=== PATIENT | female | born 1945 | race Caucasian/White ===

== ENCOUNTER 2016-10-11 14:05 | Observation (INO) | payer OTHER ==
[~2016-10-11] VITALS: Ht 157.5 cm; Wt 52.6 kg
[~2016-10-11 14:05] MED LIST: MECL25CH PO; ZOFR4TAB3 SL
[2016-10-11 14:10] VITALS: BP 148/78; PULSE 76; RESP 18; TEMP 98.4; O2SAT 99
--- NOTE | 2016-10-11 14:38 | PD ---
HPI Chief Complaint: Dizziness Time Seen by Provider: 14:14 Travel History International Travel<30 days: No Contact w/Intl Traveler<30days: No Traveled to known affect area: No History of Present Illness HPI To 71 year-old woman presents to the emergency department complaining of squeezing pressure-like discomfort in her chest ongoing for the past 3-4 days. Symptoms been intermittent. Worse with emotional upset. Not predictably worse with exertion, however is relieved by rest. Symptoms are associated with nausea and dizziness. States he gets short of breath when she gets upset sometimes with nothing definitely associated with a squeezing pressure. She had the symptoms when she came into the emergency department but they've been relieved after laying here in the bed. She otherwise has been feeling generally well and healthy. No history of previous heart disease. She states she gets similar symptoms fleetingly in the past, but nothing it daily and nothing this severe. Only medical history is hyperlipidemia, borderline diabetes. History Past Medical History Narrative Medical Hyperlipidemia Borderline diabetes Influenza Vaccination: Yes Social History Alcohol Use: No Tobacco Use: No Allergies-Medications (Allergen,Severity, Reaction): Coded Allergies: No Known Allergies (Unverified , 10/11/16) Reported Meds & Prescriptions Reported Meds & Active Scripts Active No Active Prescriptions or Reported Medications Review of Systems Except as stated in HPI: all other systems reviewed are Neg Physical Exam Narrative GENERAL: Well-appearing 71 year-old woman, no acute distress. SKIN: Warm and dry. NECK: Trachea midline. No JVD. CARDIOVASCULAR: Regular rate and rhythm. Faint systolic murmur. RESPIRATORY: No accessory muscle use. Clear to auscultation. Breath sounds equal bilaterally. GASTROINTESTINAL: Abdomen soft, non-tender, nondistended. Hepatic and splenic margins not palpable. MUSCULOSKELETAL: No obvious deformities. No clubbing. No cyanosis. No edema. NEUROLOGICAL: Awake and alert. No obvious cranial nerve deficits. Motor grossly within normal limits. Normal speech. PSYCHIATRIC: Appropriate mood and affect; insight and judgment normal. Data Data Last Documented VS Vital Signs Date Time Temp Pulse Resp B/P Pulse Ox O2 Delivery O2 Flow Rate FiO2 10/11/16 14:45 99 Nasal Cannula 2 10/11/16 14:45 16 10/11/16 14:10 98.4 76 148/78 Orders Electrocardiogram (10/11/16 14:33) Complete Blood Count With Diff (10/11/16 14:33) Comprehensive Metabolic Panel (10/11/16 14:33) Magnesium (Mg) (10/11/16 14:33) Troponin I (10/11/16 14:33) Lipase (10/11/16 14:33) Ecg Monitoring (10/11/16 14:33) Iv Access Insert/Monitor (10/11/16 14:33) Oximetry (10/11/16 14:33) Oxygen Administration (10/11/16 14:33) Aspirin Chew (Aspirin Chew) (10/11/16 14:45) Sodium Chloride 0.9% Flush (Ns Flush) (10/11/16 14:45) Sodium Chlorid 0.9% 500 Ml Inj (Ns 500 M (10/11/16 14:45) Chest, Pa & Lat (10/11/16 14:33) Labs Laboratory Tests Test 10/11/16 14:35 White Blood Count 9.3 TH/MM3 Red Blood Count 4.09 MIL/MM3 Hemoglobin 12.3 GM/DL Hematocrit 36.5 % Mean Corpuscular Volume 89.4 FL Mean Corpuscular Hemoglobin 30.2 PG Mean Corpuscular Hemoglobin 33.8 % Concent Red Cell Distribution Width 12.5 % Platelet Count 340 TH/MM3 Mean Platelet Volume 7.7 FL Neutrophils (%) (Auto) 43.2 % Lymphocytes (%) (Auto) 31.6 % Monocytes (%) (Auto) 5.1 % Eosinophils (%) (Auto) 19.1 % Basophils (%) (Auto) 1.0 % Neutrophils # (Auto) 4.0 TH/MM3 Lymphocytes # (Auto) 2.9 TH/MM3 Monocytes # (Auto) 0.5 TH/MM3 Eosinophils # (Auto) 1.8 TH/MM3 Basophils # (Auto) 0.1 TH/MM3 CBC Comment DIFF FINAL Differential Comment Sodium Level 138 MEQ/L Potassium Level 3.7 MEQ/L Chloride Level 103 MEQ/L Carbon Dioxide Level 25.3 MEQ/L Anion Gap 10 MEQ/L Blood Urea Nitrogen 12 MG/DL Creatinine 0.62 MG/DL Estimat Glomerular Filtration 95 ML/MIN Rate Random Glucose 159 MG/DL Calcium Level 8.4 MG/DL Magnesium Level 2.2 MG/DL Total Bilirubin 0.2 MG/DL Aspartate Amino Transf 17 U/L (AST/SGOT) Alanine Aminotransferase 23 U/L (ALT/SGPT) Alkaline Phosphatase 54 U/L Troponin I LESS THAN 0.02 NG/ML Total Protein 6.6 GM/DL Albumin 3.5 GM/DL Lipase 185 U/L MDM Medical Decision Making Medical Screen Exam Complete: Yes Emergency Medical Condition: Yes Interpretation(s) My review of EKG: Normal sinus rhythm at a rate of 74, normal axis, normal intervals, no acute ischemia. LABS: CBC remarkable for eosinophilia. CMP unremarkable Troponin negative Lipase normal Chest x-ray negative. Differential Diagnosis ACS, anxiety, shortness of breath, gastritis, hepatobiliary disease, PE, dissection Narrative Course Medical decision making INITIAL: 71 year-old woman, no history of heart disease, hyperlipidemia borderline diabetes, presents with pressure-like chest discomfort consistent with angina increasing over the past several days. No epigastric tenderness or right upper quadrant tenderness. No other evidence of PE. We'll check labs, EKG, chest x-ray, and likely admission to chest pain Center for further evaluation. Diagnosis Primary Impression: Chest pain Qualified Code: R07.89 - Other chest pain Admitting Information Admitting Physician Requests: Observation Scripts No Active Prescriptions or Reported Meds Trell Sommers MD Oct 11, 2016 14:38
[2016-10-11 14:45] VITALS: RESP 16; O2SAT 99
[2016-10-11 14:45] LABS: BASOPHIL # 0.1 TH/MM3 (0-0.2); EOSINOPHIL # 1.8 TH/MM3 (0-0.4); EOSINOPHIL % 19.1 % (0.0-4.0); HEMATOCRIT 36.5 % (35.0-46.0); LYMPH % 31.6 % (9.0-44.0); LYMPHOCYTE # 2.9 TH/MM3 (1.0-4.8); MEAN CELL VOLUME 89.4 FL (80.0-100.0); MEAN CORPUSCULAR HEMOGLOBIN 30.2 PG (27.0-34.0); MEAN CORPUSCULAR HGB CONC 33.8 % (32.0-36.0); MONO % 5.1 % (0.0-8.0); NEUT % 43.2 % (16.0-70.0); PLATELET COUNT 340 TH/MM3 (150-450); RED BLOOD COUNT 4.09 MIL/MM3 (4.00-5.30); RED CELL DISTRIBUTION WIDTH 12.5 % (11.6-17.2); WHITE BLOOD COUNT 9.3 TH/MM3 (4.0-11.0)
[2016-10-11] MEDS ORDERED: ASPIRIN 81 MG CHEW TAB PO ONE (14:45)
[2016-10-11] MEDS ORDERED: SODIUM CHLORID 0.9% 500 ML INJ 500 ML IV ONE (14:45)
[2016-10-11] MEDS ORDERED: SODIUM CHLORIDE 0.9% FLUSH 5 ML FLUSH IVF PRN ×2 (14:45→16:00)
[2016-10-11 14:57] LABS: HEMO FLAGS DIFF FINAL
[2016-10-11 14:58] LABS: CHLORIDE 103 MEQ/L (98-107); POTASSIUM 3.7 MEQ/L (3.5-5.1); SODIUM (NA) 138 MEQ/L (136-145)
[2016-10-11 15:02] LABS: ANION GAP 10 MEQ/L (5-15); BICARBONATE 25.3 MEQ/L (21.0-32.0); MAGNESIUM 2.2 MG/DL (1.5-2.5)
[2016-10-11 15:03] LABS: BLOOD UREA NITROGEN 12 MG/DL (7-18)
[2016-10-11 15:05] LABS: ALT (GPT) 23 U/L (10-53); AST (GOT) 17 U/L (15-37); GLOMERULAR FILTRATION RATE 95 ML/MIN (>89)
[2016-10-11 15:07] LABS: TOTAL BILIRUBIN ADULT 0.2 MG/DL (0.2-1.0)
[2016-10-11 15:08] LABS: ALKALINE PHOSPHATASE 54 U/L (45-117)
--- NOTE | 2016-10-11 15:20 | RADHPO ---
EXAM DATE/TIME: 10/11/2016 14:43 [facility] COMPARISON: No previous studies available for comparison. INDICATIONS : Chest pressure,nausea,and dizziness. MEDICAL HISTORY : Hypertension. SURGICAL HISTORY : None. ENCOUNTER: Initial ACUITY: 4 - 6 days PAIN SCORE: 0/10 LOCATION: Bilateral chest FINDINGS: PA and lateral views of the chest demonstrate the lungs to be symmetrically aerated without evidence of mass, infiltrate or effusion. The cardiomediastinal contours are unremarkable. Osseous structure s are intact. CONCLUSION: No acute disease. Madhu Bell MD on October 11, 2016 at 15:18 Board Certified Radiologist. This report was verified electronically.
[2016-10-11] MEDS ORDERED: ALPRAZolam 0.25 MG TAB PO PRN (16:00)
[2016-10-11] MEDS ORDERED: ACETAMINOPHEN/HYDROcodone 325 MG/7.5 MG TAB PO PRN (16:00)
[2016-10-11] MEDS ORDERED: ONDANSETRON HCL 4 MG/2 ML VIAL IV PRN (16:00)
[2016-10-11] MEDS ORDERED: NITROGLYCERIN 0.4 MG SL 25 TABS/BTL SL PRN (16:00)
[2016-10-11] MEDS ORDERED: MORPHINE SULFATE 4 MG/ML INJ IV PRN (16:00)
--- NOTE | 2016-10-11 16:53 | EKG ---
Date Performed: 10/11/2016 Time Performed: 14:11:18 PTAGE: 71 years EKG: Sinus rhythm Normal ECG NO SIGNIFICANT CHANGE FROM PRIOR ELECTROCARDIOGRAM. PREVIOUS TRACING : 05/03/2016 08.40 DOCTOR: Marquise Cline Interpretating Date/Time 10/11/2016 16:52:39
[2016-10-11] MEDS ORDERED: SODIUM CHLORIDE 0.9% FLUSH 5 ML FLUSH IVF SCH (21:00)
[2016-10-12] MEDS ORDERED: ASPIRIN 325 MG TAB PO SCH (09:00)
== END 2016-10-11 16:15 | disposition left against medical advice (07) ==
LOC: PHED 14:05 → PHEDA 15:52
PROVIDERS: ADMIT Family Medicine; ATTEND Family Medicine
DX: R07.89 Other chest pain (principal); R11.0 Nausea; R42 Dizziness and giddiness; R06.02 Shortness of breath; E78.5 Hyperlipidemia, unspecified; R73.03 Prediabetes
CPT/HCPCS: 71020; 80053; 83690; 83735; 84484; 85025; 93005; 96360; 99285; G0378; J7040